=== PATIENT | male | born 1960 | race African-American/Black ===

== ENCOUNTER 2021-06-08 13:28 | Inpatient (IN) | payer SELFPAY ==
[2021-06-08 15:30] LABS: Platelet Count 15 thou/uL (130-400)
[2021-06-08 15:31] LABS: #Lymphocytes 1.6 thou/uL (1.20-3.40); #Monocytes 0.7 thou/uL (0.11-0.59); #Neutrophils 6.8 thou/uL (1.40-6.50); %Eosinophils 0.5 % (0.0-10.0); %Lymphocytes 17.2 % (21.0-51.0); %Monocytes 7.7 % (0.0-10.0); %Neutrophils 74.6 % (42.0-75.0); Hemoglobin 13.9 g/dL (14.0-18.0); Mean Corpuscular HGB CONC 33.4 g/dL (32.0-36.0); Mean Corpuscular Hemoglobin 29.1 pg (27.0-31.0); RBC Distribution Width 14.9 % (11.5-14.5); Red Blood Cell (RBC) Count 4.77 mill/uL (4.70-6.10); White Blood Cell (WBC) Count 9.1 thou/uL (4.8-10.8)
[2021-06-08] MEDS ORDERED: Labetalol HCl 100 MG/20 ML VIAL ONE (15:40)
[2021-06-08 15:42] LABS: Mean Platelet Volume 15.9 fL (7.4-10.4); Platelet Morphology Comment Appears Decreased; RBC Morphology Normal; Reflex for Review?? NO
[2021-06-08 15:54] LABS: ALT (SGPT) 14 U/L (8-55); AST (SGOT) 47 U/L (5-34); Albumin 3.8 g/dL (3.5-5.0); Alkaline Phosphatase 89 U/L (40-110); Anion Gap 20 mmol/L (10-20); BUN (Urea Nitrogen) 23 mg/dL (8.4-25.7); Bilirubin, Total 2.9 mg/dL (0.2-1.2); Calc. Creatinine Clearance 0 mL/min (70-130); Calcium 9.8 mg/dL (7.8-10.44); Carbon Dioxide 21 mmol/L (22-29); Chloride 93 mmol/L (98-107); Globulin 7.9 g/dL (2.4-3.5); Glucose 102 mg/dL (70-105); Potassium 5.3 mmol/L (3.5-5.1); Protein, Total 11.7 g/dL (6.0-8.3); Sodium 129 mmol/L (136-145)
[2021-06-08] MEDS ORDERED: Labetalol HCl 100 MG/20 ML VIAL SLOW IVP PRN (18:53)
[2021-06-08] MEDS ORDERED: traMADol HCl 50 MG TAB PO PRN (19:02)
[2021-06-08] MEDS ORDERED: Diazepam 5 MG TAB PO PRN (19:25)
[2021-06-08] MEDS ORDERED: Amlodipine 5 MG TAB PO SCH ×2 (19:30→21:00)
[2021-06-08] MEDS ORDERED: Thiamine HCl 200 MG/2 ML VIAL IM SCH (19:30)
[2021-06-08 20:34] VITALS: BMI 17.2
[2021-06-09] MEDS ORDERED: Diazepam 5 MG TAB PO PRN (04:00)
[2021-06-09 04:05] LABS: #Eosinphils 0.1 thou/uL (0.0-0.7); #Lymphocytes 2.1 thou/uL (1.20-3.40); #Monocytes 0.8 thou/uL (0.11-0.59); #Neutrophils 4.6 thou/uL (1.40-6.50); %Basophils 0.3 % (0.0-1.0); %Eosinophils 1.7 % (0.0-10.0); %Lymphocytes 27.8 % (21.0-51.0); %Neutrophils 60.1 % (42.0-75.0); Hemoglobin 11.8 g/dL (14.0-18.0); Mean Corpuscular HGB CONC 33.8 g/dL (32.0-36.0); Mean Corpuscular Hemoglobin 29.4 pg (27.0-31.0); Mean Platelet Volume 14.2 fL (7.4-10.4); Platelet Count 20 thou/uL (130-400); RBC Distribution Width 14.4 % (11.5-14.5); Red Blood Cell (RBC) Count 4.01 mill/uL (4.70-6.10); White Blood Cell (WBC) Count 7.6 thou/uL (4.8-10.8)
[2021-06-09 04:06] LABS: Platelet Morphology Comment Appears Decreased
[2021-06-09 04:27] LABS: ALT (SGPT) 9 U/L (8-55); AST (SGOT) 27 U/L (5-34); Alkaline Phosphatase 70 U/L (40-110); Anion Gap 12 mmol/L (10-20); BUN (Urea Nitrogen) 29 mg/dL (8.4-25.7); Bilirubin, Total 1.9 mg/dL (0.2-1.2); Calc. Creatinine Clearance 49 mL/min (70-130); Calcium 8.5 mg/dL (7.8-10.44); Carbon Dioxide 24 mmol/L (22-29); Chloride 97 mmol/L (98-107); Globulin 5.5 g/dL (2.4-3.5); Glucose 83 mg/dL (70-105); Potassium 3.3 mmol/L (3.5-5.1); Protein, Total 8.5 g/dL (6.0-8.3); Sodium 130 mmol/L (136-145)
[2021-06-09] MEDS ORDERED: Electrolyte Replacement Protocol 1 EACH FS PRN (06:29)
[2021-06-09] MEDS ORDERED: Electrolyte Replacement Protocol 1 EACH FS SCH (06:30)
[2021-06-09] MEDS ORDERED: Potassium Chloride 20 MEQ TAB PO SCH (06:30)
[2021-06-09 07:30] LABS: Magnesium 0.7 mg/dL (1.6-2.6)
[2021-06-09] MEDS: Multivitamin W/ Minerals 1 TAB PO SCH (08:13)
[2021-06-09] MEDS: Thiamine 100 MG TAB PO SCH (08:13)
[2021-06-09] MEDS: Folic Acid 1 MG TAB PO SCH (08:13)
[2021-06-09] MEDS: Magnesium Oxide 400 MG TAB PO SCH (08:13)
[2021-06-09] MEDS: Cyanocobalamin (Vitamin B-12) 1,000 MCG TAB PO SCH (08:57)
[2021-06-09] MEDS: Potassium Chloride 30 MEQ in Sodium Chloride 0.9% 1,000 ML IV SCH ×2 (08:57→20:06)
[2021-06-09] MEDS ORDERED: Amlodipine 5 MG TAB PO SCH ×2 (09:00→18:30)
[2021-06-09] MEDS ORDERED: Magnesium Sulfate 4 GM in Sodium Chloride 0.9% 250 ML 250 ML IVPB SCH (09:00)
[2021-06-09] MEDS ORDERED: Amlodipine 10 MG TAB PO SCH (17:47)
[2021-06-09] MEDS: hydrALAZINE 20 MG/ML VIAL SLOW IVP PRN (18:01)
[2021-06-09 20:02] LABS: SARS-CoV-2 PCR by NAA Not Detected (NotDetected)
[2021-06-09] MEDS ORDERED: Potassium Chloride 30 MEQ in Sodium Chloride 0.9% 1,000 ML IV SCH (21:30)
[2021-06-10] MEDS: hydrALAZINE 20 MG/ML VIAL SLOW IVP PRN (03:51)
[2021-06-10 04:41] LABS: Anion Gap 7 mmol/L (10-20); BUN (Urea Nitrogen) 23 mg/dL (8.4-25.7); Calc. Creatinine Clearance 70 mL/min (70-130); Calcium 8.4 mg/dL (7.8-10.44); Carbon Dioxide 26 mmol/L (22-29); Chloride 102 mmol/L (98-107); Glucose 87 mg/dL (70-105); Magnesium 1.7 mg/dL (1.6-2.6); Potassium 4.3 mmol/L (3.5-5.1); Sodium 131 mmol/L (136-145)
[2021-06-10 04:46] LABS: Bilirubin, Direct 0.7 mg/dL (0.1-0.3); Bilirubin, Total 1.5 mg/dL (0.2-1.2)
[2021-06-10 04:58] LABS: Hep C IgG Ab Non-Reactive (NonReactive); Hep C Index 0.24 S/CO (0-0.79)
[2021-06-10] MEDS ORDERED: Magnesium 2 GM/50 ML 2 GM in Premix Bag 1 BAG IVPB SCH (05:00)
[2021-06-10 05:59] LABS: Band 11 % (5-11); Eosinophils 4 % (0-10); Hemoglobin 11.1 g/dL (14.0-18.0); Lymphocytes 16 % (21-51); MDiff Complete? YES; Mean Corpuscular HGB CONC 32.7 g/dL (32.0-36.0); Mean Corpuscular Hemoglobin 28.8 pg (27.0-31.0); Mean Corpuscular Volume 88.2 fL (78.0-98.0); Mean Platelet Volume 12.4 fL (7.4-10.4); Monocytes 8 % (0-10); Neutrophil 60 % (42-75); Platelet Count 31 thou/uL (130-400); Platelet Morphology Comment Appears Decreased; RBC Distribution Width 14.5 % (11.5-14.5); Red Blood Cell (RBC) Count 3.86 mill/uL (4.70-6.10); White Blood Cell (WBC) Count 7.7 thou/uL (4.8-10.8)
[2021-06-10] MEDS: Magnesium Oxide 400 MG TAB PO SCH (09:08)
[2021-06-10] MEDS: Multivitamin W/ Minerals 1 TAB PO SCH (09:09)
[2021-06-10] MEDS: Thiamine 100 MG TAB PO SCH (09:09)
[2021-06-10] MEDS: Cyanocobalamin (Vitamin B-12) 1,000 MCG TAB PO SCH (09:09)
[2021-06-10] MEDS: Folic Acid 1 MG TAB PO SCH (09:09)
[2021-06-10 13:03] VITALS: BP 135/95; TEMP 98.3
[2021-06-12 08:39] LABS: Hep B Surface AG-Rflx Sendout Negative (Negative); Hepatitis B Core Total Negative (Negative); Hepatitis B Surface AB-Sendout Non Reactive (.)
== END 2021-06-10 17:15 | disposition home or self-care (01) | DRG 896 ==
LOC: ERS 13:28 → ONC 17:38
PROVIDERS: ADMIT Internal Medicine; ATTEND Internal Medicine
PROC: HZ2ZZZZ Detoxification Services for Substance Abuse Treatment (ICD-10-PCS; principal; 2021-06-08)
DX: F10.20 Alcohol dependence, uncomplicated (principal); E43 Unspecified severe protein-calorie malnutrition; E87.1 Hypo-osmolality and hyponatremia; N17.9 Acute kidney failure, unspecified; Z68.1 Body mass index [BMI] 19.9 or less, adult; I16.0 Hypertensive urgency; E83.42 Hypomagnesemia; I10 Essential (primary) hypertension; E87.6 Hypokalemia; F17.210 Nicotine dependence, cigarettes, uncomplicated; M25.512 Pain in left shoulder; D69.59 Other secondary thrombocytopenia; E86.1 Hypovolemia; Z20.822 Contact with and (suspected) exposure to COVID-19; D75.89 Other specified diseases of blood and blood-forming organs; Z98.890 Other specified postprocedural states; Z71.6 Tobacco abuse counseling; Z71.41 Alcohol abuse counseling and surveillance of alcoholic
CPT/HCPCS: 36415; 71045; 80048; 80053; 82247; 82607; 82746; 83735; 84484; 85025; 86704; 86705; 86706; 86707; 86803; 87340; 87350; 93005; 93975; 94760; 96374; J0360; J3411; J3475; J3480; J7050; U0003; U0005